=== PATIENT | female | born 2000 | race Two or more races ===

== ENCOUNTER 2025-07-09 10:21 | Outpatient (CLI) | payer MEDICAID ==
[2025-07-09 10:56] LABS: Hematocrit 42.8 % (36.0-46.0); Hemoglobin 15.1 g/dL (12.2-16.2); Mean Corpuscular Hemoglobin 30.7 pg (28.0-32.0); Mean Corpuscular Volume 86.8 fL (80.0-100.0); Nucleated Red Blood Cells % 0.1 %
[2025-07-09 11:38] LABS: Amphetamine Screen, Urine Neg (NEGATIVE); Barbiturate Scree,Urine Neg (NEGATIVE); Benzodiazephine Screen, Urine Neg (NEGATIVE); Cannabinoid Screen, Urine Neg (NEGATIVE); Cocaine Screen, Urine Neg (NEGATIVE); Opiate Scree,Urine Neg (NEGATIVE); Phencyclidine Screen, Urine Neg (NEGATIVE)
[2025-07-10 12:07] LABS: Chlamydia Trachomatis, NAA Negative (Negative); Neisseria gonorrhoeae, NAA Negative (Negative)
== END 2025-07-09 17:00 | disposition home or self-care (01) ==
LOC: LAB 10:21
DX: O23.40 Unspecified infection of urinary tract in pregnancy, unspecified trimester (principal); N39.0 Urinary tract infection, site not specified; Z11.3 Encounter for screening for infections with a predominantly sexual mode of transmission; Z31.430 Encounter of female for testing for genetic disease carrier status for procreative management; Z20.09 Contact with and (suspected) exposure to other intestinal infectious diseases; Z3A.00 Weeks of gestation of pregnancy not specified
CPT/HCPCS: 36415; 80307; 83036; 84144; 84702; 85025; 86703; 86762; 86780; 86850; 86900; 86901; 87086; 87340

== ENCOUNTER 2025-09-17 11:34 | Outpatient (CLI) | payer MEDICAID | END 2025-09-17 17:00 | disposition home or self-care (01) | LOC: LAB 11:34 | DX: Z34.00 Encounter for supervision of normal first pregnancy, unspecified trimester (principal); Z3A.00 Weeks of gestation of pregnancy not specified | CPT/HCPCS: 87086 ==